=== PATIENT | male | born 1995 | race American Indian/Alaskan Native ===

== ENCOUNTER 2018-09-21 03:12 | Emergency (ER) | payer OTHER ==
[2018-09-21] MEDS ORDERED: Pantoprazole 40 MG Tab.CR PO ONE ×2 (03:13→05:30)
[2018-09-21] MEDS ORDERED: Ondansetron 4 MG Tab.DIS PO ONE ×2 (03:13→03:45)
--- NOTE | 2018-09-21 03:50 | EDM.PDOC ---
ED HPI GENERAL MEDICAL PROBLEM - General Chief Complaint: General Stated Complaint: THROWING UP BLOOD Time Seen by Provider: 09/21/18 03:45 Source of Information: Reports: Patient History Limitations: Reports: No Limitations - History of Present Illness INITIAL COMMENTS - FREE TEXT/NARRATIVE: patient is a 23-year-old male who presents today with concern for vomiting towards the past 4 days. He states he has not been able to keep anything down. He also notes some abdominal pain which started yesterday, and has been having diarrhea for the past 2 days. He feels little bit lightheaded and sweaty on occasion. His symptoms have been worsening and so he came in tonight for evaluation. slight amount of blood noted in vomit. Urinating regularly, clear, no dysuria or urgency. Past medical history is unremarkable and he states he has never done this before. He drinks regularly, probably a bottle of vodka a day. Last drink was morning. Also using meth and THC, last time was morning. Denies opioid use. - Related Data Allergies Allergy/AdvReac Type Severity Reaction Status Date / Time No Known Allergies Allergy Verified 09/21/18 03:39 Home Meds: Home Meds NK [No Known Home Meds] 09/21/18 [History] Past Medical History - Past Health History Medical/Surgical History: Denies Medical/Surgical History Social & Family History - Family History Family Medical History: Noncontributory - Tobacco Use Smoking Status *Q: Current Every Day Smoker Years of Tobacco use: 9 Packs/Tins Daily: 0.5 - Alcohol Use Alcohol Use History: Yes Days Per Week of Alcohol Use: 7 Number of Drinks Per Day: 5 Total Drinks Per Week: 35 - Recreational Drug Use Recreational Drug Use: Yes Recreational Drug Type: Reports: Marijuana/Hashish, Methamphetamine - Living Situation & Occupation Living situation: Reports: Alone 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 ED EXAM, GENERAL - Physical Exam Exam: See Below Free Text/Narrative:: Gen.: Alert, sitting comfortably on bed with no acute distress. Head is atraumatic. Tympanic membranes are clear bilaterally with normal light reflex. Pupils are equal and reactive, extraocular motion is intact and there is no scleral icterus. Facial muscles are symmetric. Throat is without erythema, mucous membranes are moist and there is no cervical lymphadenopathy. Neck is supple. Heart is regular rate and rhythm, lungs are clear throughout with no wheezes or crackles. Abdomen positive bowel sounds, soft nondistended nontender with no rebound or guarding. Negative Grier's and McBurney's point. Peripheral pulses +2 in the upper and lower extremities bilaterally and there is no lower extremity edema. Strength is equal bilaterally and his gait is normal. Course - Vital Signs Text/Narrative:: initial impressionpossible viral gastroenteritis, more likely alcoholic gastritis. States symptoms have been going on for 4 days and he is not keeping anything down, but his vitals are completely normal here. Will get labs, ODT Zofran and by mouth fluids okay Last Recorded V/S: Last Vital Signs Temp 36.7 C 09/21/18 03:25 Pulse 74 09/21/18 03:25 Resp 16 09/21/18 03:25 BP 155/99 H 09/21/18 03:25 Pulse Ox 98 09/21/18 03:25 - Orders/Labs/Meds Orders: Active Orders 24 hr Category Date Time Status BILIRUBIN DIRECT/INDIRECT [CHEM] Stat Lab 09/21/18 05:13 Ordered Famotidine [Pepcid] Med 09/21/18 05:29 Once 20 mg PO ONETIME ONE Pantoprazole [ProTONIX] Med 09/21/18 05:30 Once 40 mg PO ONETIME ONE Labs: Laboratory Tests 09/21/18 09/21/18 09/21/18 Range/Units 03:45 03:45 03:55 WBC 6.3 (4.5-12.0) X10-3/uL RBC 5.20 (4.30-5.75) x10(6)uL Hgb 15.7 (13.5-17.8) g/dL Hct 46.2 (30.0-51.3) % MCV 88.8 (80-96) fL MCH 30.1 (27.7-33.6) pg MCHC 33.9 (32.2-35.4) g/dL RDW 12.2 (11.5-15.5) % Plt Count 333 (125-369) X10(3)uL MPV 7.6 (7.4-10.4) fL Neut % (Auto) 69.5 (46-82) % Lymph % (Auto) 21.6 (13-37) % [place] % (Auto) 8.1 (4-12) % Eos % (Auto) 0 L (1.0-5.0) % Baso % (Auto) 1 (0-2) % Neut # (Auto) 4.4 (1.6-8.3) # Lymph # (Auto) 1.4 (0.6-5.0) # [place] # (Auto) 0.5 (0.0-1.3) # Eos # (Auto) 0.0 (0.0-0.8) # Baso # (Auto) 0.0 (0.0-0.2) # Sodium (135-145) mmol/L Potassium (3.5-5.3) mmol/L Chloride (100-110) mmol/L Carbon Dioxide (21-32) mmol/L BUN (7-18) mg/dL Creatinine (0.70-1.30) mg/dL Est Cr Clr Drug Dosing mL/min Estimated GFR (MDRD) (>60) BUN/Creatinine Ratio (9-20) Glucose (80-116) mg/dL Calcium (8.6-10.2) mg/dL Magnesium (1.8-2.5) mg/dL Total Bilirubin (0.1-1.3) mg/dL AST (5-25) IU/L ALT (12-36) U/L Alkaline Phosphatase (56-112) IU/L Total Protein (6.0-8.0) g/dL Albumin (3.5-5.2) g/dL Globulin g/dL Albumin/Globulin Ratio Amylase (25-115) U/L Urine Color Yellow (YELLOW) Urine Appearance Clear (CLEAR) Urine pH 5.0 (5.0-6.5) Ur Specific [place] 1.010 (1.010-1.025) Urine Protein Negative (NEGATIVE) mg/dL Urine Glucose (UA) Normal (NORMAL) mg/dL Urine Ketones 150 H (NEGATIVE) mg/dL Urine Occult Blood Negative (NEGATIVE) Urine Nitrite Negative (NEGATIVE) Urine Bilirubin Negative (NEGATIVE) Urine Urobilinogen Normal (NEGATIVE) mg/dL Ur Leukocyte Esterase Negative (NEGATIVE) Urine RBC 0-5 (0-5) Urine WBC 0-5 (0-5) Ur Squamous Epith Cells Occasional (NS,R,O) Urine Bacteria Occasional H (NS) Urine Opiates Screen Negative (NEGATIVE) Ur Oxycodone Screen Negative (NEGATIVE) Ur Propoxyphene Screen Negative (NEGATIVE) Ur Barbituates Screen Negative (NEGATIVE) Ur Tricyclics Screen Negative (NEGATIVE) Ur Phencyclidine Scrn Negative (NEGATIVE) Ur Amphetamine Screen Negative (NEGATIVE) Urine MDMA Screen Negative (NEGATIVE) U Benzodiazepines Scrn Negative (NEGATIVE) U Cocaine Metab Screen Negative (NEGATIVE) U Marijuana (THC) Screen Negative (NEGATIVE) Ethyl Alcohol (<0.03) % 09/21/18 09/21/18 Range/Units 03:55 03:55 WBC (4.5-12.0) X10-3/uL RBC (4.30-5.75) x10(6)uL Hgb (13.5-17.8) g/dL Hct (30.0-51.3) % MCV (80-96) fL MCH (27.7-33.6) pg MCHC (32.2-35.4) g/dL RDW (11.5-15.5) % Plt Count (125-369) X10(3)uL MPV (7.4-10.4) fL Neut % (Auto) (46-82) % Lymph % (Auto) (13-37) % [place] % (Auto) (4-12) % Eos % (Auto) (1.0-5.0) % Baso % (Auto) (0-2) % Neut # (Auto) (1.6-8.3) # Lymph # (Auto) (0.6-5.0) # [place] # (Auto) (0.0-1.3) # Eos # (Auto) (0.0-0.8) # Baso # (Auto) (0.0-0.2) # Sodium 135 (135-145) mmol/L Potassium 3.3 L (3.5-5.3) mmol/L Chloride 98 L (100-110) mmol/L Carbon Dioxide 25 (21-32) mmol/L BUN 9 (7-18) mg/dL Creatinine 1.0 (0.70-1.30) mg/dL Est Cr Clr Drug Dosing 121.32 mL/min Estimated GFR (MDRD) > 60 (>60) BUN/Creatinine Ratio 9.0 (9-20) Glucose 96 (80-116) mg/dL Calcium 9.4 (8.6-10.2) mg/dL Magnesium 2.0 (1.8-2.5) mg/dL Total Bilirubin 1.5 H (0.1-1.3) mg/dL AST 50 H (5-25) IU/L ALT 53 H (12-36) U/L Alkaline Phosphatase 66 (56-112) IU/L Total Protein 8.3 H (6.0-8.0) g/dL Albumin 4.4 (3.5-5.2) g/dL Globulin 3.9 g/dL Albumin/Globulin Ratio 1.1 Amylase 43 (25-115) U/L Urine Color (YELLOW) Urine Appearance (CLEAR) Urine pH (5.0-6.5) Ur Specific [place] (1.010-1.025) Urine Protein (NEGATIVE) mg/dL Urine Glucose (UA) (NORMAL) mg/dL Urine Ketones (NEGATIVE) mg/dL Urine Occult Blood (NEGATIVE) Urine Nitrite (NEGATIVE) Urine Bilirubin (NEGATIVE) Urine Urobilinogen (NEGATIVE) mg/dL Ur Leukocyte Esterase (NEGATIVE) Urine RBC (0-5) Urine WBC (0-5) Ur Squamous Epith Cells (NS,R,O) Urine Bacteria (NS) Urine Opiates Screen (NEGATIVE) Ur Oxycodone Screen (NEGATIVE) Ur Propoxyphene Screen (NEGATIVE) Ur Barbituates Screen (NEGATIVE) Ur Tricyclics Screen (NEGATIVE) Ur Phencyclidine Scrn (NEGATIVE) Ur Amphetamine Screen (NEGATIVE) Urine MDMA Screen (NEGATIVE) U Benzodiazepines Scrn (NEGATIVE) U Cocaine Metab Screen (NEGATIVE) U Marijuana (THC) Screen (NEGATIVE) Ethyl Alcohol < 0.03 (<0.03) % Meds: Medications Discontinued Medications Generic Name Dose Route Start Last Admin Trade Name Freq PRN Reason Stop Dose Admin Ondansetron HCl 4 mg 09/21/18 03:45 09/21/18 04:01 Zofran Odt PO 09/21/18 03:46 4 mg ONETIME ONE Administration - Re-Assessments/Exams Free Text/Narrative Re-Assessment/Exam: 09/21/18 patient tolerated water by mouth and no nausea/vomiting. Still appears comfortable labs reviewed with patient, very minimal elevation in AST, ALTs, AKA, total bilirubin. Fractionated bilirubin pending. Unable to get ultrasound here tonight or over the weekend, slight concern for choledocholithiasis the patient otherwise is stable and has tolerated by mouth here. Lengthy discussion with patient regarding discharge plan. He would prefer if there are any acute medical issues requiring admission to be back in [place] close to the rest of his family. Given the distance I'm not able to transfer him there, but did offer discharge and we discussed at length about plan for him to get there safely. He is interested in quitting alcohol, however given that he drinks a liter of vodka per day I think unwise for him to quit without supervised medical withdrawal. He is quite certain he wants to go back up to [place] and in fact was planning on driving there today anyway for a visit. Ultimately we decided to discharge from the ER, and copies of patient's labs were sent with him. Specific instructions were discussed regarding seeking medical attention if he should develop any symptoms of acute abdomen, or intra- abdominal infection. We discussed cutting back on alcohol but not quitting entirely until he is able to get to a detox unit. Patient was able to verbalize the risks of this plan and still wanted to go. See discharge instructions Departure - Departure Time of Disposition: 05:31 Disposition: Home, Self-Care 01 Condition: Fair Clinical Impression: Elevated LFTs, Elevated bilirubin, Alcohol abuse - Discharge Information Instructions: Alcohol Use Disorder, Liver Function Tests Referrals: PCP,None [Primary Care Provider] - Forms: ED Department Discharge Additional Instructions: PLAN: decrease daily alcohol intake - buy a smaller bottle. Would not recommend quitting cold turkey at this time unless near a medical facility, as you could go into severe withdrawals return to [facility] if pain recurs, or vomiting is not controlled by medications, or you feel lightheaded, dizzy, or like you might pass out, go to nearest ER if abdominal pain with fever (temp >100.7F), go to nearest ER if make Sunday morning without either of the above, can be seen in clinic/re- evaluated by a physician, lab tests rechecked, and new plan formulated. You need a gallbladder/liver US which we are unable to do here this weekend. avoid meth prescription given: protonix to decrease stomach acid and irritation zofran for nausea/vomiting NO ibuprofen tylenol for pain if needed only 2000mg per day (4 extra strength tabs in 24 hours or 6 regular tylenol in 24 hours) - My Orders Last 24 Hours: My Active Orders 09/21/18 05:13 BILIRUBIN DIRECT/INDIRECT [CHEM] Stat 09/21/18 05:29 Famotidine [Pepcid] 20 mg PO ONETIME ONE 09/21/18 05:30 Pantoprazole [ProTONIX] 40 mg PO ONETIME ONE - Assessment/Plan Last 24 Hours: My Active Orders 09/21/18 05:13 BILIRUBIN DIRECT/INDIRECT [CHEM] Stat 09/21/18 05:29 Famotidine [Pepcid] 20 mg PO ONETIME ONE 09/21/18 05:30 Pantoprazole [ProTONIX] 40 mg PO ONETIME ONE
[2018-09-21] MEDS ORDERED: Famotidine 20 MG Tab PO ONE (05:29)
== END 2018-09-21 06:10 | disposition home or self-care (01) ==
LOC: FB.ED 03:12
DX: E80.7 Disorder of bilirubin metabolism, unspecified (principal); R79.89 Other specified abnormal findings of blood chemistry; F10.10 Alcohol abuse, uncomplicated; F17.210 Nicotine dependence, cigarettes, uncomplicated; Y90.1 Blood alcohol level of 20-39 mg/100 ml
CPT/HCPCS: 36415; 80053; 80305; 81001; 82150; 82247; 82248; 83735; 85025; 99284; A9270; G0480